=== PATIENT | female | born 1995 | race Caucasian/White ===

== ENCOUNTER → 2017-01-05 | Outpatient (CLI) | payer BC ==
[~2017-01-05] VITALS: Ht 169.4 cm; Wt 149.2 kg
[~2017-01-05] MED LIST: PRENATAL TABLE1 EAC3 PO
[2017-01-05 14:13] VITALS: BP 109/65
== END | disposition home or self-care (01) ==
LOC: IVINF 14:00
DX: O36.0930 Maternal care for other rhesus isoimmunization, third trimester, not applicable or unspecified (principal); Z3A.29 29 weeks gestation of pregnancy
CPT/HCPCS: 96372; J2790

== ENCOUNTER 2017-03-16 06:23 | Inpatient (IN) | payer BC ==
[~2017-03-16] VITALS: Ht 167.6 cm; Wt 75.7 kg
[2017-03-16] VITALS (9 sets, daily range): BP systolic 108–117; BP diastolic 56–80
[2017-03-16] MEDS ORDERED: IBUPROFEN800 MG PO (09:39)
[2017-03-16] MEDS ORDERED: ENDOCET 5-3251 EACH PO (09:39)
[2017-03-17 03:00] VITALS: BP 107/63
[2017-03-17 06:59] LABS: EOSINOPHIL (%) 0.5 % (0-5); EOSINOPHIL COUNT 0.1 K/uL (0-0.3); HEMATOCRIT 27.2 % (36.0-46.0); IMMATURE GRANULOCYTE (%) 0.9 % (0.0-0.7); IMMATURE GRANULOCYTE COUNT 0.1 K/uL; INSTRUMENT ABS NEUTROPHIL CT 9.1 K/uL; LYMPHOCYTE COUNT 2.4 K/uL (1.0-2.8); MCH 30.2 PG (29.0-34.0); MCHC 33.5 G/DL (30.0-36.0); MCV 90.4 FL (83-99); MONOCYTE (%) 7.8 % (3-12); NEUTROPHIL (%) 71.4 % (45-76); NEUTROPHIL COUNT 9.1 K/uL (1.8-6.4); PLATELET COUNT 117 K/uL (156-360); RBC DIS.WIDTH-CV 12.8 % (11.8-14.6); RBC DIS.WIDTH-SD 42.2 % (39-53); WHITE BLOOD COUNT 12.7 K/uL (4.1-10.2)
[2017-03-17 07:21] LABS: RED BLOOD COUNT 3.01 M/uL (3.80-5.20)
[2017-03-17 14:55] VITALS: BP 116/72
[2017-03-17 19:00] VITALS: BP 125/78
[2017-03-17 23:00] VITALS: BP 124/69
[2017-03-18 03:00] VITALS: BP 122/67
[2017-03-18 07:41] VITALS: BP 127/71
== END 2017-03-18 12:25 | disposition home or self-care (01) | DRG 766 ==
LOC: 2WEST 06:23 → 2SOUTH 10:14 → 2WEST 03-18 12:25
PROVIDERS: Obstetrics & Gynecology
PROC: 10D00Z1 Extraction of Products of Conception, Low, Open Approach (ICD-10-PCS; principal; 2017-03-16)
DX: O34.211 Maternal care for low transverse scar from previous cesarean delivery (principal); O69.81X0 Labor and delivery complicated by cord around neck, without compression, not applicable or unspecified; Z3A.39 39 weeks gestation of pregnancy; Z37.0 Single live birth
CPT/HCPCS: 36415; 85025; 86870; 86900; 86901; 86920; 86999; J0690; J1100; J1885; J2274; J2405; J3010; J7120